=== PATIENT | male | born 1975 | race Hispanic/Latino ===

== ENCOUNTER 2019-12-25 17:35 | Emergency (ER) | payer SELFPAY ==
--- NOTE | 2019-12-25 22:05 | CT ---
CT HEAD WITHOUT IV CONTRAST COMPARISON: None HISTORY: Laceration to left side of head. TECHNIQUE: Axial CT imaging at 5 mm intervals from vertex through skull base without contrast FINDINGS: Mild cerebral volume loss is present. There is no evidence of an acute infarction, hemorrhage, mass e ffect, or midline shift. The ventricular system is normal in size, shape, and position. Visualized paranasal sinuses are clear. Osseous structures appear intact.Left anterior frontal scalp soft tissue swelling is present. Minimal soft tissue defect is present likely due to associated laceration. No underlying calvarial fracture is identified. IMPRESSION: 1. No acute intracranial abnormality demonstrated. 2. Mild cerebral volume loss. 3. Left anterior frontal scalp hematoma and associated laceration.
--- NOTE | 2019-12-25 22:07 | CT ---
EXAM: CT Facial Bones WO Con PROVIDED CLINICAL HISTORY: Laceration to left side of head. COMPARISON: None FINDINGS: Left anterior frontal scalp soft tissue swelling is seen with overlying soft tissue defect likely due to associated laceration. This is incompletely imaged. Visualized underlying left frontal bone demonstrates no fracture. No fracture is seen involving the facial bones. Temporomandibular joints are normally located. Mild mucosal thickening is present in each maxillary antrum. Remainder of the paranasal sinuses as we ll as limited visualized mastoid air cells are clear. Degenerative changes are seen in the visualized cervical spine. IMPRESSION: 1. Left anterior frontal scalp hematoma and associated laceration incompletely imaged. 2. No fracture is seen involving the facial bones. 3. Mild sinus disease.
== END 2019-12-25 22:36 | disposition home or self-care (01) ==
LOC: ERS 17:35
DX: S06.0X0D Concussion without loss of consciousness, subsequent encounter (principal); L76.82 Other postprocedural complications of skin and subcutaneous tissue; L03.811 Cellulitis of head [any part, except face]; F17.210 Nicotine dependence, cigarettes, uncomplicated; Y09 Assault by unspecified means
CPT/HCPCS: 70450; 70486